=== PATIENT | male | born 1935 | race Asian ===

== ENCOUNTER 2018-05-17 10:35 | Emergency (ER) | payer MEDICARE, OTHER ==
[2018-05-17] MEDS: ACETAMINOPHEN 500 MG TAB PO (11:31)
[2018-05-17] MEDS: LIDOCAINE 1%/EPI 30 ML INJ INJ (13:25)
[2018-05-17] MEDS: LIDOCAINE 1%/EPI (1:100,000) (MDV) 20 ML INJ (13:26)
== END 2018-05-17 13:33 | disposition home or self-care (01) ==
LOC: FTE 10:35
DX: S01.81XA Laceration without foreign body of other part of head, initial encounter (principal); S00.83XA Contusion of other part of head, initial encounter; W18.30XA Fall on same level, unspecified, initial encounter; Y92.9 Unspecified place or not applicable
CPT/HCPCS: 12013; 70450; 70486; 99284-25

== ENCOUNTER 2019-03-10 06:46 | Day surgery (SDC) | payer MEDICARE, OTHER ==
[2019-03-10] MEDS ORDERED: DEXAMETHASONE 4 MG/ML 1 ML INJ (06:51)
[2019-03-10] MEDS ORDERED: LIDOCAINE 4% (MPF) 5 ML INJ (06:51)
[2019-03-10] MEDS ORDERED: CEFAZOLIN 1 GM INJ (06:51)
[2019-03-10] MEDS ORDERED: CARBACHOL 0.01% 1.5 ML OPH INJ (06:51)
[2019-03-10] MEDS ORDERED: GENTAMICIN 80 MG INJ (06:51)
[2019-03-10] MEDS: TROPICAMIDE 1% 15 ML OPH OPER (07:39)
[2019-03-10] MEDS: DICLOFENAC 0.1% 2.5 ML OPH OPER (07:40)
[2019-03-10] MEDS: CYCLOPENTOLATE/PHENYLEPH 2 ML OPH OPER (07:40)
[2019-03-10] MEDS: MOXIFLOXACIN 0.5% 3 ML OPH OPER (07:40)
[2019-03-10] MEDS ORDERED: SOD CHLORIDE 0.9% 1,000 ML IV (08:00)
[2019-03-10] MEDS: CARBACHOL 0.01% 1.5 ML OPH INJ IO (08:30)
[2019-03-10] MEDS ORDERED: HYDROmorphONE 1 MG/5 ML IV SYRINGE IV ×2 (08:30)
[2019-03-10] MEDS: DEXAMETHASONE 4 MG/ML 1 ML INJ INJ (08:30)
[2019-03-10] MEDS ORDERED: hydrALAzine 20 MG INJ IV (08:30)
[2019-03-10] MEDS: CEFAZOLIN 1 GM INJ INJ (08:30)
[2019-03-10] MEDS ORDERED: EPHEDrine 25 MG/5 ML SYG IV (08:30)
[2019-03-10] MEDS: LIDOCAINE 4% (MPF) 5 ML INJ INJ (08:30)
[2019-03-10] MEDS ORDERED: FENTAnyl 50 MCG/ML VIAL IV (08:30)
[2019-03-10] MEDS ORDERED: ONDANSETRON 4 MG INJ IV (08:30)
[2019-03-10] MEDS ORDERED: LABETALOL HCL 20MG INJ IV (08:30)
[2019-03-10] MEDS ORDERED: MIDAZOLAM 1 MG/ML 2 ML INJ (08:50)
[2019-03-10] MEDS ORDERED: LIDOCAINE 2% (SDV) 5 ML INJ (08:52)
[2019-03-10] MEDS ORDERED: PROPOFOL 20 ML (08:52)
[2019-03-10] MEDS ORDERED: FENTAnyl 50 MCG/ML VIAL (08:53)
== END 2019-03-10 10:25 | disposition home or self-care (01) ==
LOC: SDS 06:46
DX: H25.12 Age-related nuclear cataract, left eye (principal); E11.9 Type 2 diabetes mellitus without complications; I10 Essential (primary) hypertension; E03.9 Hypothyroidism, unspecified; M06.9 Rheumatoid arthritis, unspecified; Z79.84 Long term (current) use of oral hypoglycemic drugs
CPT/HCPCS: 66984; 82962